=== PATIENT | female | born 1995 | race Caucasian/White ===

== ENCOUNTER 2019-03-06 11:55 | Outpatient (CLI) | payer OTHER ==
--- NOTE | 2019-03-06 15:31 | ULT ---
Complete obstetrical ultrasound INDICATION: Size and dates TECHNIQUE: Grayscale, M-mode Doppler and Doppler images were obtained of the abdomen and pelvis to ev aluate the patient's known . COMPARISON: None. FINDINGS: Number of gestations: Single. Presentation: Breech. Placental location: Anterior Previa: No evidence for previa. Cervical length: 5.1 cm without evidence of funneling BHAVESH: 13.1 cm. heart rate: 137 bpm. Biparietal diameter: 4.54cm, 19 weeks 5 days, Not calculated.. Head circumference: 16.6 cm, 19 weeks 1 day, Not calculated. Abdominal circumference: 15.5 cm, 20 weeks and 4 days, Not calculated. Femoral length: 3.08cm, 19 weeks 2 days, Not calculated. Estimated weight: 328 g , Not calculated. SURVEY: head: Normal appearing. Cerebellum: Normal appearing. Cisterna magna: Normal appearing. Lateral ventricles: Normal appearing. 4 chamber heart: Normal appearing.. Stomach: Normal appearing. Kidneys: Normal appearing. Cord insertion: Normal appearing. Bladder: Normal appearing. Spine: Normal appearing. Lips and nose: Normal appearing. Extremities: Normal appearing. Three-vessel CORD: Normal appearing. The average gestational age by ultrasound is 19 weeks 4 dayswith estimated due date of July 27, 2019 . The estimated dates by clinical data is 20 weeks and 0 dayswith estimated due date of July 24, 2019. IMPRESSION: 1. Single live intrauterine gestation with size and dates as above.
== END 2019-03-06 11:56 | disposition home or self-care (01) ==
LOC: NAV ULT 11:55
PROVIDERS: ATTEND Family Medicine
DX: O09.92 Supervision of high risk pregnancy, unspecified, second trimester (principal); Z3A.20 20 weeks gestation of pregnancy
CPT/HCPCS: 76805

== ENCOUNTER 2019-06-01 18:11 | Emergency (ER) | payer OTHER ==
[2019-06-01] MEDS ORDERED: Sodium Chloride 0.9% 1,000 ML ONE (18:46)
== END 2019-06-01 19:38 | disposition short-term general hospital (02) ==
LOC: NAV ERS 18:11
DX: O42.913 Preterm premature rupture of membranes, unspecified as to length of time between rupture and onset of labor, third trimester (principal); O99.343 Other mental disorders complicating pregnancy, third trimester; F41.9 Anxiety disorder, unspecified; F32.9 Major depressive disorder, single episode, unspecified; O99.513 Diseases of the respiratory system complicating pregnancy, third trimester; J45.909 Unspecified asthma, uncomplicated; Z87.891 Personal history of nicotine dependence; Z3A.32 32 weeks gestation of pregnancy
CPT/HCPCS: 96360; J7050

== ENCOUNTER 2019-09-08 05:54 | Emergency (ER) | payer OTHER ==
[2019-09-08] MEDS ORDERED: traMADol HCl 50 MG TAB ONE (06:28)
[2019-09-08] MEDS ORDERED: Cephalexin 250 MG CAP ONE (06:28)
== END 2019-09-08 06:35 | disposition home or self-care (01) ==
LOC: NAV ERS 05:54
DX: K03.81 Cracked tooth (principal); K02.9 Dental caries, unspecified; J45.909 Unspecified asthma, uncomplicated; F41.9 Anxiety disorder, unspecified; F32.9 Major depressive disorder, single episode, unspecified
CPT/HCPCS: 99283